=== PATIENT | male | born 1975 | race Caucasian/White ===

== ENCOUNTER 2018-08-30 18:09 | Inpatient (IN) | payer MEDICARE ==
[~2018-08-30] VITALS: Ht 182.9 cm; Wt 94.3 kg
[2018-08-30 19:13] VITALS: BP 109/61
[2018-08-30] MEDS ORDERED: NICOTINE TRANSD1 TDM TD (19:29)
[2018-08-30] MEDS ORDERED: ZOVIRAX PO (19:29)
[2018-08-30] MEDS ORDERED: IBU600 MG PO (19:30)
[2018-08-30] MEDS ORDERED: MS CONTIN30 MG PO (19:31)
[2018-08-30] MEDS ORDERED: TYLENOL EXTRA500 M2 PO (19:32)
[2018-08-30] MEDS ORDERED: HYDROXYZINE HCL25 M1 PO (19:33)
[2018-08-30] MEDS ORDERED: CYMBALTA30 M1 PO (19:33)
[2018-08-30] MEDS ORDERED: SEROQUEL 2525 MG/TAB PO (19:33)
[2018-08-30] MEDS ORDERED: GOOD NEIGH1200 MG/15 PO (19:34)
[2018-08-30] MEDS ORDERED: DULCOLAX STOOL100 M1 PO (19:34)
[2018-08-30] MEDS ORDERED: MIRALAX17 GM PO (19:35)
[2018-08-30] MEDS ORDERED: SENNA-S LAXATI1 EACH PO (19:35)
[2018-08-30] MEDS ORDERED: ZOFRAN4 M2 PO (19:37)
[2018-08-30] MEDS ORDERED: CEFAZOLIN 1 GM VIAL IV (19:37)
[2018-08-31 06:25] VITALS: BP 106/62
[2018-08-31 06:57] LABS: EOS # 0.2 (0.04-0.40); EOS % 2.3 % (0.0-4.0); LYMPH# 1.2 (1.50-4.00); MEAN CELL VOLUME 91 fl (78-100); MEAN CORPUSCULAR HEMOGLOBIN 27 pg (27-31); MEAN CORPUSCULAR HGB CONC 30 g/dL (33-37); MEAN PLATELET VOLUME 8.7 fl (7.4-10.4); MONO # 0.4 (0.20-0.80); PLATELET COUNT 416 K/mm3 (130-400); RED BLOOD COUNT 2.59 M/mm3 (4.20-5.60); RED CELL DISTRIBUTION WIDTH 15.2 % (11.5-14.5); WHITE BLOOD COUNT 6.9 K/mm3 (4.8-10.8)
[2018-08-31 06:59] LABS: HEMATOCRIT 23.5 % (42.0-52.0)
[2018-08-31 08:04] LABS: ALBUMIN 1.9 g/dL (3.5-5.0)
[2018-08-31 08:05] LABS: POTASSIUM 4.1 mmol/L (3.5-5.1)
[2018-08-31 08:06] LABS: CALCIUM 7.3 mg/dL (8.3-10.5)
[2018-08-31 08:07] LABS: TOTAL PROTEIN 5.2 g/dL (6.4-8.3)
[2018-08-31 08:09] LABS: TOTAL BILIRUBIN 0.3 mg/dL (0.2-1.2)
[2018-08-31 19:02] VITALS: BP 109/61
[2018-09-01 06:02] VITALS: BP 102/62
[2018-09-01 18:44] VITALS: BP 100/59
[2018-09-02 06:27] VITALS: BP 94/49
[2018-09-02 08:41] VITALS: BP 99/57
[2018-09-02 09:35] LABS: EOS # 0.3 (0.04-0.40); EOS % 4.9 % (0.0-4.0); HEMATOCRIT 27.1 % (42.0-52.0); HEMOGLOBIN 8.2 g/dL (13.5-18.0); MEAN CELL VOLUME 92 fl (78-100); MEAN CORPUSCULAR HEMOGLOBIN 28 pg (27-31); MEAN CORPUSCULAR HGB CONC 30 g/dL (33-37); MEAN PLATELET VOLUME 8.6 fl (7.4-10.4); MONO # 0.4 (0.20-0.80); NEU # 4.4 (1.40-6.50); PLATELET COUNT 364 K/mm3 (130-400); RED BLOOD COUNT 2.95 M/mm3 (4.20-5.60); RED CELL DISTRIBUTION WIDTH 15.5 % (11.5-14.5); WHITE BLOOD COUNT 6.1 K/mm3 (4.8-10.8)
[2018-09-02 09:43] LABS: ALBUMIN 2.3 g/dL (3.5-5.0); POTASSIUM 4.6 mmol/L (3.5-5.1)
[2018-09-02 09:45] LABS: CALCIUM 8.6 mg/dL (8.3-10.5)
[2018-09-02 09:48] LABS: TOTAL BILIRUBIN 0.3 mg/dL (0.2-1.2)
[2018-09-02 10:37] LABS: ERYTHROCYTE SEDIMENTATION RATE 42 mm/hr (0-15)
[2018-09-02 14:32] LABS: URINE APPEARANCE CLEAR; URINE BILIRUBIN NEGATIVE (NEGATIVE); URINE BLOOD NEGATIVE (NEGATIVE); URINE COLOR YELLOW; URINE GLUCOSE NEGATIVE (NEGATIVE); URINE KETONE NEGATIVE (NEGATIVE); URINE LEUKOCYTE ESTERASE NEGATIVE (NEGATIVE); URINE NITRATE NEGATIVE (NEGATIVE); URINE PROTEIN(semi-quant) NEGATIVE (NEGATIVE); URINE UROBILINOGEN NORMAL (NORMAL); URINE WBC 0-1 /hpf (0-3)
[2018-09-02 18:16] VITALS: BP 113/69
[2018-09-03 06:20] VITALS: BP 101/51
[2018-09-03 18:33] VITALS: BP 102/61
[2018-09-04 06:37] VITALS: BP 103/67
[2018-09-04 08:45] LABS: EOS % 0.2 % (0.0-4.0); HEMATOCRIT 29.5 % (42.0-52.0); HEMOGLOBIN 9.1 g/dL (13.5-18.0); LYMPH# 1.8 (1.50-4.00); MEAN CELL VOLUME 91 fl (78-100); MEAN CORPUSCULAR HEMOGLOBIN 28 pg (27-31); MEAN CORPUSCULAR HGB CONC 31 g/dL (33-37); MONO # 0.6 (0.20-0.80); NEU # 9.1 (1.40-6.50); PLATELET COUNT 398 K/mm3 (130-400); RED BLOOD COUNT 3.23 M/mm3 (4.20-5.60); RED CELL DISTRIBUTION WIDTH 16.1 % (11.5-14.5); WHITE BLOOD COUNT 11.5 K/mm3 (4.8-10.8)
[2018-09-04 08:55] LABS: ALBUMIN 2.7 g/dL (3.5-5.0); POTASSIUM 4.6 mmol/L (3.5-5.1)
[2018-09-04 08:56] LABS: CALCIUM 8.8 mg/dL (8.3-10.5)
[2018-09-04 08:57] LABS: TOTAL PROTEIN 6.7 g/dL (6.4-8.3)
[2018-09-04 08:59] LABS: TOTAL BILIRUBIN 0.5 mg/dL (0.2-1.2)
[2018-09-04 19:02] VITALS: BP 118/67
[2018-09-05 06:36] VITALS: BP 100/64
[2018-09-05 09:07] LABS: HEMATOCRIT 31.2 % (42.0-52.0); HEMOGLOBIN 9.5 g/dL (13.5-18.0); LYMPH# 1.9 (1.50-4.00); MEAN CELL VOLUME 92 fl (78-100); MEAN CORPUSCULAR HEMOGLOBIN 28 pg (27-31); MEAN CORPUSCULAR HGB CONC 30 g/dL (33-37); MEAN PLATELET VOLUME 9.2 fl (7.4-10.4); MONO # 0.8 (0.20-0.80); PLATELET COUNT 401 K/mm3 (130-400); RED BLOOD COUNT 3.39 M/mm3 (4.20-5.60); RED CELL DISTRIBUTION WIDTH 16.7 % (11.5-14.5); WHITE BLOOD COUNT 11.8 K/mm3 (4.8-10.8)
[2018-09-05 18:32] VITALS: BP 114/70
[2018-09-06 06:21] VITALS: BP 108/68
[2018-09-06 18:26] VITALS: BP 99/61
[2018-09-07 06:24] VITALS: BP 108/63
[2018-09-07 08:03] LABS: EOS # 0.2 (0.04-0.40); EOS % 3.2 % (0.0-4.0); HEMATOCRIT 31.7 % (42.0-52.0); HEMOGLOBIN 9.7 g/dL (13.5-18.0); LYMPH# 1.6 (1.50-4.00); MEAN CELL VOLUME 92 fl (78-100); MEAN CORPUSCULAR HEMOGLOBIN 28 pg (27-31); MEAN CORPUSCULAR HGB CONC 31 g/dL (33-37); MEAN PLATELET VOLUME 9.1 fl (7.4-10.4); MONO # 0.8 (0.20-0.80); NEU # 4.7 (1.40-6.50); PLATELET COUNT 319 K/mm3 (130-400); RED BLOOD COUNT 3.45 M/mm3 (4.20-5.60); RED CELL DISTRIBUTION WIDTH 17.5 % (11.5-14.5); WHITE BLOOD COUNT 7.5 K/mm3 (4.8-10.8)
[2018-09-07 08:33] LABS: CALCIUM 8.8 mg/dL (8.3-10.5); POTASSIUM 4.6 mmol/L (3.5-5.1)
[2018-09-07 19:02] VITALS: BP 116/67
[2018-09-08 06:26] VITALS: BP 111/62
[2018-09-08 18:37] VITALS: BP 102/62
[2018-09-09 06:22] VITALS: BP 105/56
[2018-09-09 18:48] VITALS: BP 102/61
[2018-09-10 06:27] VITALS: BP 100/61
[2018-09-10 10:53] LABS: EOS # 0.4 (0.04-0.40); EOS % 4.2 % (0.0-4.0); HEMOGLOBIN 11.2 g/dL (13.5-18.0); LYMPH# 2.1 (1.50-4.00); MEAN CELL VOLUME 94 fl (78-100); MEAN CORPUSCULAR HEMOGLOBIN 28 pg (27-31); MEAN CORPUSCULAR HGB CONC 30 g/dL (33-37); MEAN PLATELET VOLUME 9.6 fl (7.4-10.4); NEU # 4.9 (1.40-6.50); PLATELET COUNT 242 K/mm3 (130-400); RED BLOOD COUNT 3.95 M/mm3 (4.20-5.60); RED CELL DISTRIBUTION WIDTH 18.4 % (11.5-14.5); WHITE BLOOD COUNT 8.5 K/mm3 (4.8-10.8)
[2018-09-10 11:06] LABS: ALBUMIN 3.3 g/dL (3.5-5.0)
[2018-09-10 11:07] LABS: POTASSIUM 4.8 mmol/L (3.5-5.1)
[2018-09-10 11:08] LABS: CALCIUM 9.3 mg/dL (8.3-10.5)
[2018-09-10 11:09] LABS: TOTAL PROTEIN 7.5 g/dL (6.4-8.3)
[2018-09-10 11:11] LABS: TOTAL BILIRUBIN 0.5 mg/dL (0.2-1.2)
[2018-09-10 18:31] VITALS: BP 99/57
[2018-09-11 06:19] VITALS: BP 106/61
[2018-09-11 18:41] VITALS: BP 83/44
[2018-09-12 06:10] VITALS: BP 90/49
[2018-09-12 18:39] VITALS: BP 124/62
[2018-09-13 06:18] VITALS: BP 99/55
[2018-09-13 08:05] LABS: HEMATOCRIT 34.4 % (42.0-52.0); HEMOGLOBIN 10.3 g/dL (13.5-18.0); MEAN CELL VOLUME 94 fl (78-100); MEAN CORPUSCULAR HEMOGLOBIN 28 pg (27-31); MEAN CORPUSCULAR HGB CONC 30 g/dL (33-37); MEAN PLATELET VOLUME 9.6 fl (7.4-10.4); PLATELET COUNT 245 K/mm3 (130-400); RED BLOOD COUNT 3.67 M/mm3 (4.20-5.60); RED CELL DISTRIBUTION WIDTH 17.4 % (11.5-14.5); WHITE BLOOD COUNT 5.6 K/mm3 (4.8-10.8)
[2018-09-13 08:12] LABS: POTASSIUM 4.9 mmol/L (3.5-5.1)
[2018-09-13 08:13] LABS: CALCIUM 9.2 mg/dL (8.3-10.5)
[2018-09-13 08:14] LABS: TOTAL PROTEIN 6.8 g/dL (6.4-8.3)
[2018-09-13 08:16] LABS: TOTAL BILIRUBIN 0.4 mg/dL (0.2-1.2)
[2018-09-13 08:52] LABS: LYMPHOCYTE 31 % (20-51); MONOCYTE 16 % (3-10); NEUTROPHILS 49 % (42-75)
[2018-09-13 08:53] LABS: MICROCYTOSIS 1+; OVALOCYTES 1+
[2018-09-13 18:25] VITALS: BP 103/62
[2018-09-14 06:18] VITALS: BP 106/58
[2018-09-14 18:38] VITALS: BP 104/61
[2018-09-15 06:27] VITALS: BP 97/60
[2018-09-15 18:42] VITALS: BP 116/59
[2018-09-16 06:03] VITALS: BP 102/59; BP 141/77
[2018-09-16 19:06] VITALS: BP 100/57
[2018-09-17 06:08] VITALS: BP 110/65
[2018-09-17 18:00] VITALS: BP 104/58
[2018-09-18 05:58] LABS: EOS # 0.2 (0.04-0.40); EOS % 2.8 % (0.0-4.0); HEMATOCRIT 33.5 % (42.0-52.0); HEMOGLOBIN 10.1 g/dL (13.5-18.0); LYMPH# 1.5 (1.50-4.00); MEAN CELL VOLUME 93 fl (78-100); MEAN CORPUSCULAR HEMOGLOBIN 28 pg (27-31); MEAN CORPUSCULAR HGB CONC 30 g/dL (33-37); MEAN PLATELET VOLUME 10.2 fl (7.4-10.4); MONO # 0.8 (0.20-0.80); NEU # 5.2 (1.40-6.50); PLATELET COUNT 189 K/mm3 (130-400); RED BLOOD COUNT 3.59 M/mm3 (4.20-5.60); RED CELL DISTRIBUTION WIDTH 16.1 % (11.5-14.5); WHITE BLOOD COUNT 7.8 K/mm3 (4.8-10.8)
[2018-09-18 06:15] VITALS: BP 101/59
[2018-09-18 06:24] LABS: POTASSIUM 4.4 mmol/L (3.5-5.1)
[2018-09-18 06:25] LABS: CALCIUM 8.9 mg/dL (8.3-10.5)
[2018-09-18 19:14] VITALS: BP 105/53
[2018-09-19 06:24] VITALS: BP 105/67
[2018-09-19 18:00] VITALS: BP 102/62
[2018-09-20 06:22] VITALS: BP 111/64
[2018-09-20 18:25] VITALS: BP 106/65
[2018-09-21 06:16] VITALS: BP 90/60
[2018-09-21 18:56] VITALS: BP 95/58
[2018-09-22 06:20] VITALS: BP 100/63
[2018-09-22 18:23] VITALS: BP 100/62
[2018-09-23 06:21] VITALS: BP 106/65
[2018-09-23 18:33] VITALS: BP 110/68
[2018-09-24 06:23] VITALS: BP 103/66
[2018-09-24 18:16] VITALS: BP 111/67
[2018-09-25 06:24] VITALS: BP 111/63
[2018-09-25 06:26] LABS: HEMATOCRIT 36.1 % (42.0-52.0); HEMOGLOBIN 11.1 g/dL (13.5-18.0); MEAN CELL VOLUME 91 fl (78-100); MEAN CORPUSCULAR HEMOGLOBIN 28 pg (27-31); MEAN CORPUSCULAR HGB CONC 31 g/dL (33-37); MEAN PLATELET VOLUME 10.1 fl (7.4-10.4); PLATELET COUNT 192 K/mm3 (130-400); RED BLOOD COUNT 3.95 M/mm3 (4.20-5.60)
[2018-09-25 06:27] LABS: ALBUMIN 3.2 g/dL (3.5-5.0); POTASSIUM 4.8 mmol/L (3.5-5.1)
[2018-09-25 06:29] LABS: CALCIUM 9.2 mg/dL (8.3-10.5)
[2018-09-25 06:30] LABS: TOTAL PROTEIN 7.2 g/dL (6.4-8.3)
[2018-09-25 06:32] LABS: TOTAL BILIRUBIN 0.4 mg/dL (0.2-1.2)
[2018-09-25 06:43] LABS: LYMPHOCYTE 23 % (20-51); MONOCYTE 12 % (3-10); NEUTROPHILS 60 % (42-75)
[2018-09-25 18:20] VITALS: BP 102/64
[2018-09-26 06:20] VITALS: BP 95/63
[2018-09-26 18:26] VITALS: BP 95/61
[2018-09-27 05:59] LABS: HEMATOCRIT 36.4 % (42.0-52.0); HEMOGLOBIN 11.3 g/dL (13.5-18.0); MEAN CELL VOLUME 91 fl (78-100); MEAN CORPUSCULAR HEMOGLOBIN 28 pg (27-31); MEAN CORPUSCULAR HGB CONC 31 g/dL (33-37); MEAN PLATELET VOLUME 9.6 fl (7.4-10.4); PLATELET COUNT 168 K/mm3 (130-400); RED CELL DISTRIBUTION WIDTH 14.7 % (11.5-14.5); WHITE BLOOD COUNT 5.8 K/mm3 (4.8-10.8)
[2018-09-27 06:17] VITALS: BP 113/73
[2018-09-27 06:26] LABS: LYMPHOCYTE 25 % (20-51); MONOCYTE 16 % (3-10); NEUTROPHILS 54 % (42-75)
[2018-09-27 07:37] LABS: ERYTHROCYTE SEDIMENTATION RATE 13 mm/hr (0-15)
[2018-09-27 18:33] VITALS: BP 104/64
[2018-09-28 06:21] VITALS: BP 109/63
[2018-09-28 18:47] VITALS: BP 100/62
[2018-09-29 06:23] VITALS: BP 124/64
[2018-09-29 17:11] VITALS: BP 108/65
[2018-09-30 06:21] VITALS: BP 95/57
[2018-09-30 18:30] VITALS: BP 108/67
[2018-10-01 06:12] VITALS: BP 106/59
[2018-10-01 18:41] VITALS: BP 110/67
[2018-10-02 06:22] VITALS: BP 108/65
[2018-10-02 18:12] VITALS: BP 108/79
[2018-10-03 06:00] LABS: EOS # 0.3 (0.04-0.40); EOS % 4.9 % (0.0-4.0); HEMATOCRIT 38.1 % (42.0-52.0); HEMOGLOBIN 11.8 g/dL (13.5-18.0); MEAN CELL VOLUME 91 fl (78-100); MEAN CORPUSCULAR HEMOGLOBIN 28 pg (27-31); MEAN CORPUSCULAR HGB CONC 31 g/dL (33-37); MEAN PLATELET VOLUME 10.5 fl (7.4-10.4); MONO # 0.7 (0.20-0.80); NEU # 3.2 (1.40-6.50); PLATELET COUNT 171 K/mm3 (130-400); RED BLOOD COUNT 4.19 M/mm3 (4.20-5.60); RED CELL DISTRIBUTION WIDTH 14.9 % (11.5-14.5); WHITE BLOOD COUNT 6.3 K/mm3 (4.8-10.8)
[2018-10-03 06:11] VITALS: BP 99/57
[2018-10-03 06:12] LABS: ALBUMIN 3.3 g/dL (3.5-5.0); POTASSIUM 4.4 mmol/L (3.5-5.1)
[2018-10-03 06:13] LABS: CALCIUM 9.2 mg/dL (8.3-10.5)
[2018-10-03 06:15] LABS: TOTAL PROTEIN 7.3 g/dL (6.4-8.3)
[2018-10-03 06:16] LABS: TOTAL BILIRUBIN 0.5 mg/dL (0.2-1.2)
[2018-10-03 18:32] VITALS: BP 114/68
[2018-10-04 06:16] VITALS: BP 95/54
[2018-10-04 18:43] VITALS: BP 111/71
[2018-10-05 06:21] VITALS: BP 105/61
[2018-10-05 18:37] VITALS: BP 107/63
[2018-10-06 06:20] VITALS: BP 117/74
[2018-10-06 19:00] VITALS: BP 114/71
[2018-10-07 06:17] VITALS: BP 119/78
[2018-10-07 18:41] VITALS: BP 116/70
[2018-10-08 06:19] VITALS: BP 108/66
[2018-10-08 19:10] VITALS: BP 132/76
[2018-10-09 06:15] VITALS: BP 103/57
[2018-10-09 19:12] VITALS: BP 121/76
[2018-10-10 06:20] VITALS: BP 107/64
[2018-10-10 18:29] VITALS: BP 125/77
[2018-10-11 06:27] VITALS: BP 111/73
[2018-10-11 18:37] VITALS: BP 123/76
[2018-10-12 06:27] VITALS: BP 120/70
[2018-10-12 18:33] VITALS: BP 131/82
[2018-10-13 06:12] VITALS: BP 119/78
[2018-10-13 18:50] VITALS: BP 122/78
[2018-10-14 06:45] VITALS: BP 109/69
[2018-10-14 18:00] VITALS: BP 127/76
[2018-10-15 06:22] VITALS: BP 130/80
[2018-10-15 18:43] VITALS: BP 121/77
[2018-10-16 06:05] VITALS: BP 103/67
[2018-10-16] MEDS ORDERED: CEPHALEXIN500 M1 PO (15:05)
[2018-10-16] MEDS ORDERED: NICOTINE TRANSD1 TDM TD (15:06)
[2018-10-16] MEDS ORDERED: MS CONTIN30 MG PO (15:07)
[2018-10-16] MEDS ORDERED: SEROQUEL 2525 MG/TAB PO (15:07)
[2018-10-16] MEDS ORDERED: HYDROXYZINE HCL25 M1 PO (15:08)
[2018-10-16] MEDS ORDERED: BUSPIRONE5 MG PO (15:09)
[2018-10-16] MEDS ORDERED: HEALTHYLAX17 GM/Dose PO (15:10)
[2018-10-16] MEDS ORDERED: SENNA-TIME S 501 TAB PO (15:10)
[2018-10-16] MEDS ORDERED: DULCOLAX STOOL100 M1 PO (15:10)
[2018-10-16] MEDS ORDERED: ACETAMINOPHEN-O1 TAB PO (15:12)
[2018-10-16 17:11] VITALS: BP 114/76
[2018-10-17 06:03] VITALS: BP 109/66
== END 2018-10-17 16:12 | disposition home health service (06) | DRG 949 ==
LOC: MED/SURG 18:09
PROVIDERS: Family Medicine; Nurse Practitioner Primary Care; Physician Assistant; ADMIT Nurse Practitioner Family
DX: T84.51XD Infection and inflammatory reaction due to internal right hip prosthesis, subsequent encounter (principal); J86.9 Pyothorax without fistula; L03.113 Cellulitis of right upper limb; F19.10 Other psychoactive substance abuse, uncomplicated; F17.210 Nicotine dependence, cigarettes, uncomplicated; F32.9 Major depressive disorder, single episode, unspecified; F41.9 Anxiety disorder, unspecified; G89.29 Other chronic pain; B19.20 Unspecified viral hepatitis C without hepatic coma; B02.9 Zoster without complications; L27.0 Generalized skin eruption due to drugs and medicaments taken internally; T36.1X5A Adverse effect of cephalosporins and other beta-lactam antibiotics, initial encounter; Y92.239 Unspecified place in hospital as the place of occurrence of the external cause; Z79.891 Long term (current) use of opiate analgesic
CPT/HCPCS: A4216; A6209; J0690; J1650; J2916; J2920; J3490; Q0177

== ENCOUNTER → 2018-10-23 | Outpatient (CLI) | payer SELFPAY ==
[2018-10-17 06:03] VITALS: BP 109/66
[~2018-10-23] MED LIST: ACETAMINOPHEN-O1 TAB PO; BUSPIRONE5 MG PO; CEFAZOLIN 1 GM VIAL IV; CEPHALEXIN500 M1 PO; CYMBALTA30 M1 PO; DULCOLAX STOOL100 M1 PO; GOOD NEIGH1200 MG/15 PO; HEALTHYLAX17 GM/Dose PO; HYDROXYZINE HCL25 M1 PO; IBU600 MG PO; MIRALAX17 GM PO; MS CONTIN30 MG PO; NICOTINE TRANSD1 TDM TD; SENNA-S LAXATI1 EACH PO; SENNA-TIME S 501 TAB PO; SEROQUEL 2525 MG/TAB PO; TYLENOL EXTRA500 M2 PO; ZOFRAN4 M2 PO; ZOVIRAX PO
[2018-10-23 14:43] LABS: EOS # 0.3 (0.04-0.40); EOS % 3.7 % (0.0-4.0); HEMATOCRIT 43.1 % (42.0-52.0); HEMOGLOBIN 13.6 g/dL (13.5-18.0); LYMPH# 1.9 (1.50-4.00); MEAN CELL VOLUME 88 fl (78-100); MEAN CORPUSCULAR HEMOGLOBIN 28 pg (27-31); MEAN CORPUSCULAR HGB CONC 32 g/dL (33-37); MEAN PLATELET VOLUME 9.4 fl (7.4-10.4); MONO # 0.8 (0.20-0.80); NEU # 5.8 (1.40-6.50); PLATELET COUNT 219 K/mm3 (130-400); RED CELL DISTRIBUTION WIDTH 13.6 % (11.5-14.5); WHITE BLOOD COUNT 8.9 K/mm3 (4.8-10.8)
[2018-10-23 14:51] LABS: ALBUMIN 3.9 g/dL (3.5-5.0)
[2018-10-23 14:52] LABS: POTASSIUM 4.5 mmol/L (3.5-5.1)
[2018-10-23 14:53] LABS: CALCIUM 9.5 mg/dL (8.3-10.5)
[2018-10-23 14:54] LABS: TOTAL PROTEIN 8.1 g/dL (6.4-8.3)
[2018-10-23 14:56] LABS: TOTAL BILIRUBIN 0.3 mg/dL (0.2-1.2)
[2018-10-23 16:05] LABS: ERYTHROCYTE SEDIMENTATION RATE 17 mm/hr (0-15)
== END ==
LOC: LAB 14:02
PROVIDERS: Internal Medicine
DX: T84.59XA Infection and inflammatory reaction due to other internal joint prosthesis, initial encounter (principal); M87.9 Osteonecrosis, unspecified; B19.20 Unspecified viral hepatitis C without hepatic coma

== ENCOUNTER → 2018-11-01 | Outpatient (CLI) | payer SELFPAY ==
[2018-10-17 06:03] VITALS: BP 109/66
[2018-11-01 14:22] LABS: EOS # 0.3 (0.04-0.40); EOS % 3.8 % (0.0-4.0); HEMATOCRIT 42.7 % (42.0-52.0); HEMOGLOBIN 13.8 g/dL (13.5-18.0); LYMPH# 1.2 (1.50-4.00); MEAN CELL VOLUME 86 fl (78-100); MEAN CORPUSCULAR HEMOGLOBIN 28 pg (27-31); MEAN CORPUSCULAR HGB CONC 32 g/dL (33-37); MEAN PLATELET VOLUME 9.3 fl (7.4-10.4); MONO # 0.6 (0.20-0.80); PLATELET COUNT 216 K/mm3 (130-400); RED BLOOD COUNT 4.98 M/mm3 (4.20-5.60); RED CELL DISTRIBUTION WIDTH 13.8 % (11.5-14.5); WHITE BLOOD COUNT 7.2 K/mm3 (4.8-10.8)
[2018-11-01 14:24] LABS: ALBUMIN 3.7 g/dL (3.5-5.0)
[2018-11-01 14:25] LABS: POTASSIUM 4.5 mmol/L (3.5-5.1)
[2018-11-01 14:26] LABS: CALCIUM 9.7 mg/dL (8.3-10.5)
[2018-11-01 14:29] LABS: TOTAL BILIRUBIN 0.5 mg/dL (0.2-1.2)
[2018-11-01 15:23] LABS: ERYTHROCYTE SEDIMENTATION RATE 16 mm/hr (0-15)
== END ==
LOC: LAB 13:36
PROVIDERS: Internal Medicine
DX: T84.59XA Infection and inflammatory reaction due to other internal joint prosthesis, initial encounter (principal); F19.10 Other psychoactive substance abuse, uncomplicated; M87.9 Osteonecrosis, unspecified

== ENCOUNTER → 2018-12-06 | Outpatient (CLI) | payer OTHER | LOC: LAB 16:05 | DX: Z01.89 Encounter for other specified special examinations (principal) ==

== ENCOUNTER → 2018-12-20 | Outpatient (CLI) | payer SELFPAY ==
[2018-12-20 14:44] LABS: EOS # 0.2 (0.04-0.40); EOS % 2.4 % (0.0-4.0); HEMATOCRIT 46.8 % (42.0-52.0); LYMPH# 2.4 (1.50-4.00); MEAN CELL VOLUME 82 fl (78-100); MEAN CORPUSCULAR HEMOGLOBIN 26 pg (27-31); MEAN CORPUSCULAR HGB CONC 32 g/dL (33-37); MEAN PLATELET VOLUME 9.2 fl (7.4-10.4); MONO # 0.8 (0.20-0.80); NEU # 3.8 (1.40-6.50); PLATELET COUNT 195 K/mm3 (130-400); RED BLOOD COUNT 5.71 M/mm3 (4.20-5.60); RED CELL DISTRIBUTION WIDTH 15.1 % (11.5-14.5); WHITE BLOOD COUNT 7.2 K/mm3 (4.8-10.8)
[2018-12-20 14:52] LABS: ALBUMIN 4.1 g/dL (3.5-5.0); SODIUM 141 mmol/L (136-145)
[2018-12-20 14:54] LABS: CALCIUM 9.7 mg/dL (8.3-10.5)
[2018-12-20 14:55] LABS: GLUCOSE 100 mg/dL (75-110); TOTAL PROTEIN 8.4 g/dL (6.4-8.3)
[2018-12-20 14:56] LABS: CARBON DIOXIDE 20 mmol/L (22-29)
[2018-12-20 14:57] LABS: TOTAL BILIRUBIN 0.6 mg/dL (0.2-1.2)
[2018-12-20 15:00] LABS: AST-SGOT 41 U/L (5-34)
[2018-12-20 15:01] LABS: ALT/SGPT 50 U/L (0-55)
[2018-12-20 16:13] LABS: ERYTHROCYTE SEDIMENTATION RATE 10 mm/hr (0-15)
== END ==
LOC: LAB 14:14
PROVIDERS: Internal Medicine
DX: T84.59XA Infection and inflammatory reaction due to other internal joint prosthesis, initial encounter (principal); M87.9 Osteonecrosis, unspecified; F19.10 Other psychoactive substance abuse, uncomplicated

== ENCOUNTER → 2019-01-17 | Outpatient (CLI) | payer OTHER ==
[2019-01-17 10:22] LABS: HEMATOCRIT 46.1 % (42.0-52.0); HEMOGLOBIN 15.1 g/dL (13.5-18.0); MEAN CELL VOLUME 83 fl (78-100); MEAN CORPUSCULAR HEMOGLOBIN 27 pg (27-31); MEAN CORPUSCULAR HGB CONC 33 g/dL (33-37); MEAN PLATELET VOLUME 10.5 fl (7.4-10.4); PLATELET COUNT 165 K/mm3 (130-400); RED BLOOD COUNT 5.59 M/mm3 (4.20-5.60); RED CELL DISTRIBUTION WIDTH 16.4 % (11.5-14.5); WHITE BLOOD COUNT 6.1 K/mm3 (4.8-10.8)
[2019-01-17 10:39] LABS: ALBUMIN 4.1 g/dL (3.5-5.0)
[2019-01-17 10:40] LABS: POTASSIUM 4.1 mmol/L (3.5-5.1)
[2019-01-17 10:41] LABS: CALCIUM 9.6 mg/dL (8.3-10.5)
[2019-01-17 10:42] LABS: TOTAL PROTEIN 7.9 g/dL (6.4-8.3)
[2019-01-17 11:12] LABS: LYMPHOCYTE 33 % (20-51); MONOCYTE 8 % (3-10); NEUTROPHILS 54 % (42-75)
[2019-01-17 11:34] LABS: ERYTHROCYTE SEDIMENTATION RATE 3 mm/hr (0-15)
== END ==
LOC: LAB 09:53
PROVIDERS: Internal Medicine
DX: T84.51XA Infection and inflammatory reaction due to internal right hip prosthesis, initial encounter (principal); M87.9 Osteonecrosis, unspecified

== ENCOUNTER → 2019-02-14 | Outpatient (CLI) | payer OTHER ==
[2019-02-14 08:59] LABS: BASO # 0.1 (0.02-0.10); EOS # 0.5 (0.04-0.40); HEMATOCRIT 48.9 % (42.0-52.0); HEMOGLOBIN 15.7 g/dL (13.5-18.0); LYMPH# 2.2 (1.50-4.00); MEAN CELL VOLUME 85 fl (78-100); MEAN CORPUSCULAR HEMOGLOBIN 27 pg (27-31); MEAN CORPUSCULAR HGB CONC 32 g/dL (33-37); MEAN PLATELET VOLUME 10.7 fl (7.4-10.4); MONO # 0.9 (0.20-0.80); NEU # 4.2 (1.40-6.50); PLATELET COUNT 188 K/mm3 (130-400); RED BLOOD COUNT 5.73 M/mm3 (4.20-5.60); RED CELL DISTRIBUTION WIDTH 17.2 % (11.5-14.5); WHITE BLOOD COUNT 7.9 K/mm3 (4.8-10.8)
[2019-02-14 09:06] LABS: ALBUMIN 4.3 g/dL (3.5-5.0); POTASSIUM 4.8 mmol/L (3.5-5.1)
[2019-02-14 09:08] LABS: TOTAL PROTEIN 8.2 g/dL (6.4-8.3)
[2019-02-14 09:10] LABS: TOTAL BILIRUBIN 0.7 mg/dL (0.2-1.2)
[2019-02-14 10:47] LABS: ERYTHROCYTE SEDIMENTATION RATE 3 mm/hr (0-15)
== END ==
LOC: RAD 07:58
PROVIDERS: Internal Medicine
DX: J32.0 Chronic maxillary sinusitis (principal); T84.59XA Infection and inflammatory reaction due to other internal joint prosthesis, initial encounter; M87.9 Osteonecrosis, unspecified

== ENCOUNTER → 2019-02-21 | Outpatient (CLI) | payer MEDICAID | END | disposition still patient (30) | LOC: EDSTATUS 09:30 → PT 09:30 | DX: T84.59XA Infection and inflammatory reaction due to other internal joint prosthesis, initial encounter (principal); M87.9 Osteonecrosis, unspecified ==

== ENCOUNTER → 2019-03-28 | Outpatient (CLI) | payer MEDICAID ==
[2019-03-28 09:51] LABS: EOS # 0.3 (0.04-0.40); EOS % 4.7 % (0.0-4.0); HEMATOCRIT 42.9 % (42.0-52.0); HEMOGLOBIN 14.2 g/dL (13.5-18.0); LYMPH# 1.4 (1.50-4.00); MEAN CELL VOLUME 85 fl (78-100); MEAN CORPUSCULAR HEMOGLOBIN 28 pg (27-31); MEAN CORPUSCULAR HGB CONC 33 g/dL (33-37); MEAN PLATELET VOLUME 10.8 fl (7.4-10.4); MONO # 0.7 (0.20-0.80); PLATELET COUNT 147 K/mm3 (130-400); RED BLOOD COUNT 5.04 M/mm3 (4.20-5.60); RED CELL DISTRIBUTION WIDTH 15.5 % (11.5-14.5); WHITE BLOOD COUNT 6.4 K/mm3 (4.8-10.8)
[2019-03-28 09:53] LABS: ALBUMIN 3.8 g/dL (3.5-5.0); POTASSIUM 4.3 mmol/L (3.5-5.1)
[2019-03-28 09:54] LABS: CALCIUM 8.8 mg/dL (8.3-10.5)
[2019-03-28 09:55] LABS: TOTAL PROTEIN 7.4 g/dL (6.4-8.3)
[2019-03-28 09:57] LABS: TOTAL BILIRUBIN 0.5 mg/dL (0.2-1.2)
[2019-03-28 10:55] LABS: ERYTHROCYTE SEDIMENTATION RATE 3 mm/hr (0-15)
== END ==
LOC: LAB 09:17
PROVIDERS: Internal Medicine
DX: T84.59XA Infection and inflammatory reaction due to other internal joint prosthesis, initial encounter (principal); M87.9 Osteonecrosis, unspecified

== ENCOUNTER 2019-05-06 15:52 | Inpatient (IN) | payer MEDICARE, MEDICAID ==
[~2019-05-06] VITALS: Ht 182.9 cm; Wt 104.5 kg
[2019-05-08] MEDS ORDERED: CELEXA 20MG20 MG/TA1 PO (17:06)
[2019-05-08 17:07] VITALS: BP 158/84
[2019-05-08] MEDS ORDERED: MIRTAZAPINE30 MG PO (17:07)
[2019-05-08] MEDS ORDERED: OXYCODONE HCL10 M1 PO (17:08)
[2019-05-08] MEDS ORDERED: NICOTINE21 MG/24 H TD (17:09)
[2019-05-08 18:16] VITALS: BP 158/84
[2019-05-09 05:48] VITALS: BP 123/75
[2019-05-09 18:03] VITALS: BP 115/75
[2019-05-10 06:15] VITALS: BP 116/74
[2019-05-10 07:14] LABS: EOS # 0.1 (0.04-0.40); EOS % 1.2 % (0.0-4.0); HEMATOCRIT 31.5 % (42.0-52.0); HEMOGLOBIN 9.8 g/dL (13.5-18.0); MEAN CELL VOLUME 90 fl (78-100); MEAN CORPUSCULAR HEMOGLOBIN 28 pg (27-31); MEAN CORPUSCULAR HGB CONC 31 g/dL (33-37); MEAN PLATELET VOLUME 8.8 fl (7.4-10.4); NEU # 6.3 (1.40-6.50); RED CELL DISTRIBUTION WIDTH 14.5 % (11.5-14.5); WHITE BLOOD COUNT 9.5 K/mm3 (4.8-10.8)
[2019-05-10 07:22] LABS: POTASSIUM 4.4 mmol/L (3.5-5.1)
[2019-05-10 07:23] LABS: CALCIUM 8.9 mg/dL (8.3-10.5)
[2019-05-10 08:18] LABS: PLATELET COUNT 581 K/mm3 (130-400)
[2019-05-10 08:19] LABS: ERYTHROCYTE SEDIMENTATION RATE 85 mm/hr (0-15)
[2019-05-10 17:22] VITALS: BP 103/67
[2019-05-11 06:09] VITALS: BP 112/71
[2019-05-11 17:13] VITALS: BP 112/74
[2019-05-12 06:02] VITALS: BP 112/69
[2019-05-12 16:29] VITALS: BP 104/62
[2019-05-13 05:58] VITALS: BP 114/69
[2019-05-13 17:40] VITALS: BP 110/72
[2019-05-14 06:27] VITALS: BP 115/65
[2019-05-14 07:24] LABS: ALBUMIN 3.2 g/dL (3.5-5.0); POTASSIUM 4.6 mmol/L (3.5-5.1)
[2019-05-14 07:25] LABS: CALCIUM 8.9 mg/dL (8.3-10.5)
[2019-05-14 07:27] LABS: EOS # 0.2 (0.04-0.40); EOS % 3.2 % (0.0-4.0); HEMATOCRIT 32.2 % (42.0-52.0); HEMOGLOBIN 9.7 g/dL (13.5-18.0); LYMPH# 1.6 (1.50-4.00); MEAN CELL VOLUME 89 fl (78-100); MEAN CORPUSCULAR HEMOGLOBIN 27 pg (27-31); MEAN CORPUSCULAR HGB CONC 30 g/dL (33-37); MEAN PLATELET VOLUME 8.8 fl (7.4-10.4); MONO # 0.7 (0.20-0.80); NEU # 3.1 (1.40-6.50); RED CELL DISTRIBUTION WIDTH 14.2 % (11.5-14.5); TOTAL PROTEIN 6.9 g/dL (6.4-8.3); WHITE BLOOD COUNT 5.6 K/mm3 (4.8-10.8)
[2019-05-14 07:29] LABS: TOTAL BILIRUBIN 0.2 mg/dL (0.2-1.2)
[2019-05-14 07:42] LABS: PLATELET COUNT 508 K/mm3 (130-400)
[2019-05-14 08:24] LABS: ERYTHROCYTE SEDIMENTATION RATE 76 mm/hr (0-15)
[2019-05-14 17:12] VITALS: BP 111/69
[2019-05-15 05:32] VITALS: BP 117/75
[2019-05-15 16:28] VITALS: BP 111/70
[2019-05-16 06:00] VITALS: BP 115/69
[2019-05-16 17:33] VITALS: BP 109/49
[2019-05-17 05:20] VITALS: BP 115/72
[2019-05-17 17:06] VITALS: BP 121/79
[2019-05-18 06:00] VITALS: BP 125/79
[2019-05-18 16:04] VITALS: BP 106/67
[2019-05-18 23:09] VITALS: BP 133/77
[2019-05-19 05:47] VITALS: BP 111/72
[2019-05-19 17:49] VITALS: BP 120/70
[2019-05-20 05:55] VITALS: BP 116/73
[2019-05-20 10:19] LABS: EOS # 0.2 (0.04-0.40); HEMATOCRIT 35.7 % (42.0-52.0); HEMOGLOBIN 10.8 g/dL (13.5-18.0); LYMPH# 1.4 (1.50-4.00); MEAN CELL VOLUME 88 fl (78-100); MEAN CORPUSCULAR HEMOGLOBIN 27 pg (27-31); MEAN CORPUSCULAR HGB CONC 30 g/dL (33-37); MEAN PLATELET VOLUME 9.2 fl (7.4-10.4); MONO # 0.6 (0.20-0.80); NEU # 4.2 (1.40-6.50); PLATELET COUNT 348 K/mm3 (130-400); RED BLOOD COUNT 4.07 M/mm3 (4.20-5.60); RED CELL DISTRIBUTION WIDTH 14.2 % (11.5-14.5); WHITE BLOOD COUNT 6.4 K/mm3 (4.8-10.8)
[2019-05-20 10:20] LABS: ALBUMIN 3.5 g/dL (3.5-5.0); POTASSIUM 4.3 mmol/L (3.5-5.1)
[2019-05-20 10:22] LABS: TOTAL PROTEIN 7.8 g/dL (6.4-8.3)
[2019-05-20 10:24] LABS: TOTAL BILIRUBIN 0.2 mg/dL (0.2-1.2)
[2019-05-20 15:58] VITALS: BP 113/71
[2019-05-21 05:49] LABS: HEMATOCRIT 33.2 % (42.0-52.0); HEMOGLOBIN 10.1 g/dL (13.5-18.0); MEAN CELL VOLUME 88 fl (78-100); MEAN CORPUSCULAR HEMOGLOBIN 27 pg (27-31); MEAN CORPUSCULAR HGB CONC 30 g/dL (33-37); MEAN PLATELET VOLUME 9.2 fl (7.4-10.4); PLATELET COUNT 312 K/mm3 (130-400); RED BLOOD COUNT 3.77 M/mm3 (4.20-5.60); RED CELL DISTRIBUTION WIDTH 14.1 % (11.5-14.5); WHITE BLOOD COUNT 4.8 K/mm3 (4.8-10.8)
[2019-05-21 06:04] LABS: ALBUMIN 3.2 g/dL (3.5-5.0); POTASSIUM 4.7 mmol/L (3.5-5.1)
[2019-05-21 06:05] LABS: CALCIUM 8.9 mg/dL (8.3-10.5)
[2019-05-21 06:08] LABS: TOTAL BILIRUBIN 0.2 mg/dL (0.2-1.2)
[2019-05-21 06:23] VITALS: BP 103/62
[2019-05-21 06:32] LABS: LYMPHOCYTE 28 % (20-51); MONOCYTE 13 % (3-10); NEUTROPHILS 51 % (42-75)
[2019-05-21 06:33] LABS: OVALOCYTES 1+
[2019-05-21 18:04] VITALS: BP 114/81
[2019-05-22 05:59] VITALS: BP 118/73
[2019-05-22 17:43] VITALS: BP 102/68
[2019-05-23 05:56] VITALS: BP 114/71
[2019-05-23 18:07] VITALS: BP 113/73
[2019-05-24 06:06] VITALS: BP 117/70
[2019-05-24 17:05] VITALS: BP 96/60
[2019-05-25 05:31] VITALS: BP 134/77
[2019-05-25 16:58] VITALS: BP 104/69
[2019-05-26 06:41] VITALS: BP 103/64
[2019-05-26 17:24] VITALS: BP 102/62
[2019-05-27 05:22] VITALS: BP 114/64
[2019-05-27 18:00] VITALS: BP 109/68
[2019-05-28 05:23] VITALS: BP 112/71
[2019-05-28 05:44] LABS: HEMOGLOBIN 10.6 g/dL (13.5-18.0); MEAN CELL VOLUME 87 fl (78-100); MEAN CORPUSCULAR HEMOGLOBIN 26 pg (27-31); MEAN CORPUSCULAR HGB CONC 30 g/dL (33-37); MEAN PLATELET VOLUME 9.1 fl (7.4-10.4); PLATELET COUNT 235 K/mm3 (130-400); RED BLOOD COUNT 4.03 M/mm3 (4.20-5.60); RED CELL DISTRIBUTION WIDTH 14.2 % (11.5-14.5); WHITE BLOOD COUNT 5.3 K/mm3 (4.8-10.8)
[2019-05-28 05:55] LABS: ALBUMIN 3.3 g/dL (3.5-5.0); POTASSIUM 4.4 mmol/L (3.5-5.1)
[2019-05-28 05:56] LABS: CALCIUM 8.6 mg/dL (8.3-10.5)
[2019-05-28 05:58] LABS: TOTAL PROTEIN 6.9 g/dL (6.4-8.3)
[2019-05-28 06:00] LABS: TOTAL BILIRUBIN 0.3 mg/dL (0.2-1.2)
[2019-05-28 06:31] LABS: LYMPHOCYTE 23 % (20-51); MONOCYTE 15 % (3-10); NEUTROPHILS 50 % (42-75)
[2019-05-28 18:00] VITALS: BP 102/61
[2019-05-29 05:54] VITALS: BP 117/69
[2019-05-29 16:38] VITALS: BP 103/64
[2019-05-30 05:32] VITALS: BP 125/72
[2019-05-30 17:11] VITALS: BP 111/70
[2019-05-31 05:58] VITALS: BP 109/68
[2019-05-31 16:02] VITALS: BP 106/65
[2019-06-01 06:04] VITALS: BP 111/69
[2019-06-01 18:11] VITALS: BP 102/62
[2019-06-02 06:03] VITALS: BP 113/69
[2019-06-02 16:38] VITALS: BP 93/58
[2019-06-03 06:16] VITALS: BP 102/66
[2019-06-03 17:19] VITALS: BP 95/60
[2019-06-04 05:57] LABS: EOS # 0.3 (0.04-0.40); HEMOGLOBIN 10.7 g/dL (13.5-18.0); LYMPH# 1.7 (1.50-4.00); MEAN CELL VOLUME 86 fl (78-100); MEAN CORPUSCULAR HEMOGLOBIN 26 pg (27-31); MEAN CORPUSCULAR HGB CONC 31 g/dL (33-37); MEAN PLATELET VOLUME 9.4 fl (7.4-10.4); MONO # 0.6 (0.20-0.80); NEU # 2.7 (1.40-6.50); PLATELET COUNT 222 K/mm3 (130-400); RED BLOOD COUNT 4.06 M/mm3 (4.20-5.60); RED CELL DISTRIBUTION WIDTH 14.4 % (11.5-14.5); WHITE BLOOD COUNT 5.3 K/mm3 (4.8-10.8)
[2019-06-04 05:58] LABS: EOS % 6.2 % (0.0-4.0)
[2019-06-04 06:00] LABS: ALBUMIN 3.4 g/dL (3.5-5.0); POTASSIUM 4.9 mmol/L (3.5-5.1)
[2019-06-04 06:01] LABS: CALCIUM 8.8 mg/dL (8.3-10.5)
[2019-06-04 06:03] LABS: TOTAL PROTEIN 6.9 g/dL (6.4-8.3)
[2019-06-04 06:04] LABS: TOTAL BILIRUBIN 0.3 mg/dL (0.2-1.2)
[2019-06-04 06:16] VITALS: BP 101/63
[2019-06-04 17:47] VITALS: BP 130/64
[2019-06-05 06:00] VITALS: BP 103/65
[2019-06-05 18:13] VITALS: BP 109/65
[2019-06-06 05:48] VITALS: BP 105/66
[2019-06-06 17:08] VITALS: BP 97/59
[2019-06-07 05:48] VITALS: BP 101/65
[2019-06-07 16:09] VITALS: BP 100/64
[2019-06-08 05:49] VITALS: BP 105/53
[2019-06-08 17:50] VITALS: BP 107/65
[2019-06-09 06:07] VITALS: BP 101/64
[2019-06-09 16:04] VITALS: BP 92/66
[2019-06-09 18:30] VITALS: BP 99/61
[2019-06-10 05:37] VITALS: BP 104/66
[2019-06-10 16:11] VITALS: BP 102/65
[2019-06-11 05:49] VITALS: BP 101/63
[2019-06-11 06:02] LABS: ALBUMIN 3.6 g/dL (3.5-5.0); POTASSIUM 4.8 mmol/L (3.5-5.1)
[2019-06-11 06:03] LABS: CALCIUM 8.8 mg/dL (8.3-10.5)
[2019-06-11 06:04] LABS: TOTAL PROTEIN 7.1 g/dL (6.4-8.3)
[2019-06-11 06:06] LABS: TOTAL BILIRUBIN 0.3 mg/dL (0.2-1.2)
[2019-06-11 06:52] LABS: HEMATOCRIT 34.7 % (42.0-52.0); HEMOGLOBIN 10.6 g/dL (13.5-18.0); MEAN CELL VOLUME 85 fl (78-100); MEAN CORPUSCULAR HEMOGLOBIN 26 pg (27-31); MEAN CORPUSCULAR HGB CONC 31 g/dL (33-37); MEAN PLATELET VOLUME 9.9 fl (7.4-10.4); PLATELET COUNT 217 K/mm3 (130-400); RED CELL DISTRIBUTION WIDTH 14.4 % (11.5-14.5); WHITE BLOOD COUNT 5.2 K/mm3 (4.8-10.8)
[2019-06-11 07:19] LABS: LYMPHOCYTE 32 % (20-51); MONOCYTE 10 % (3-10); NEUTROPHILS 50 % (42-75)
[2019-06-11 17:40] VITALS: BP 111/68
[2019-06-12 05:27] VITALS: BP 110/67
[2019-06-12 16:02] VITALS: BP 99/66
[2019-06-13 06:11] VITALS: BP 112/71
[2019-06-13 18:35] VITALS: BP 100/65
[2019-06-14 06:05] VITALS: BP 107/72
[2019-06-14 17:13] VITALS: BP 97/60
[2019-06-15 06:15] VITALS: BP 109/67
[2019-06-15 18:29] VITALS: BP 109/70
[2019-06-16 05:56] VITALS: BP 109/68
[2019-06-16 18:14] VITALS: BP 110/71
[2019-06-17 05:26] VITALS: BP 126/74
[2019-06-17 17:32] VITALS: BP 101/65
[2019-06-18 05:28] LABS: ALBUMIN 3.6 g/dL (3.5-5.0)
[2019-06-18 05:29] LABS: EOS # 0.4 (0.04-0.40); HEMATOCRIT 36.7 % (42.0-52.0); HEMOGLOBIN 11.3 g/dL (13.5-18.0); LYMPH# 1.6 (1.50-4.00); MEAN CELL VOLUME 85 fl (78-100); MEAN CORPUSCULAR HEMOGLOBIN 26 pg (27-31); MEAN CORPUSCULAR HGB CONC 31 g/dL (33-37); MEAN PLATELET VOLUME 9.6 fl (7.4-10.4); MONO # 0.6 (0.20-0.80); NEU # 2.6 (1.40-6.50); PLATELET COUNT 203 K/mm3 (130-400); POTASSIUM 4.8 mmol/L (3.5-5.1); RED BLOOD COUNT 4.32 M/mm3 (4.20-5.60); RED CELL DISTRIBUTION WIDTH 14.5 % (11.5-14.5); WHITE BLOOD COUNT 5.2 K/mm3 (4.8-10.8)
[2019-06-18 05:30] LABS: CALCIUM 8.7 mg/dL (8.3-10.5)
[2019-06-18 05:33] LABS: TOTAL BILIRUBIN 0.2 mg/dL (0.2-1.2)
[2019-06-18 05:44] LABS: EOS % 7.8 % (0.0-4.0)
[2019-06-18 06:00] VITALS: BP 112/65
[2019-06-18 06:27] LABS: ERYTHROCYTE SEDIMENTATION RATE 13 mm/hr (0-15)
[2019-06-18 07:23] LABS: MAGNESIUM 2.01 mg/dL (1.60-2.60)
[2019-06-18 16:17] VITALS: BP 106/68
[2019-06-19 05:41] VITALS: BP 105/67
[2019-06-19 15:59] VITALS: BP 104/69
[2019-06-20 05:35] VITALS: BP 114/66
[2019-06-20] MEDS ORDERED: CYCLOBENZAPRINE10 M1 PO (07:25)
[2019-06-20] MEDS ORDERED: FERROUS SU325 MG/TAB PO (07:26)
[2019-06-20] MEDS ORDERED: NICOTINE14 MG/24 H TD (07:26)
[2019-06-20] MEDS ORDERED: PROBIOTICA100 MILLIO PO (07:32)
[2019-06-20] MEDS ORDERED: CEPHALEXIN500 M2 PO (07:33)
== END 2019-06-20 11:30 | disposition home health service (06) | DRG 949 ==
LOC: MED/SURG 15:52
PROVIDERS: Family Medicine; Nurse Practitioner; Physician Assistant; ADMIT Internal Medicine
DX: T84.51XD Infection and inflammatory reaction due to internal right hip prosthesis, subsequent encounter (principal); J86.9 Pyothorax without fistula; Y83.9 Surgical procedure, unspecified as the cause of abnormal reaction of the patient, or of later complication, without mention of misadventure at the time of the procedure; F41.9 Anxiety disorder, unspecified; G47.00 Insomnia, unspecified; F11.10 Opioid abuse, uncomplicated; G89.29 Other chronic pain; Z86.19 Personal history of other infectious and parasitic diseases
CPT/HCPCS: J0696; J1650; J2270; Q0177

== ENCOUNTER → 2019-06-26 | Outpatient (CLI) | payer MEDICARE, MEDICAID ==
[2019-06-20 05:35] VITALS: BP 114/66
[~2019-06-26] MED LIST changes: +CELEXA 20MG20 MG/TA1 PO; +CEPHALEXIN500 M2 PO; +CYCLOBENZAPRINE10 M1 PO; +FERROUS SU325 MG/TAB PO; +MIRTAZAPINE30 MG PO; +NICOTINE14 MG/24 H TD; +NICOTINE21 MG/24 H TD; +OXYCODONE HCL10 M1 PO; +PROBIOTICA100 MILLIO PO
[2019-06-26 18:59] LABS: EOS # 0.4 (0.04-0.40); EOS % 4.8 % (0.0-4.0); HEMATOCRIT 36.7 % (42.0-52.0); HEMOGLOBIN 11.4 g/dL (13.5-18.0); LYMPH# 1.8 (1.50-4.00); MEAN CELL VOLUME 83 fl (78-100); MEAN CORPUSCULAR HEMOGLOBIN 26 pg (27-31); MEAN CORPUSCULAR HGB CONC 31 g/dL (33-37); MEAN PLATELET VOLUME 9.3 fl (7.4-10.4); MONO # 0.7 (0.20-0.80); NEU # 4.8 (1.40-6.50); PLATELET COUNT 255 K/mm3 (130-400); RED CELL DISTRIBUTION WIDTH 14.8 % (11.5-14.5); WHITE BLOOD COUNT 7.8 K/mm3 (4.8-10.8)
[2019-06-26 19:52] LABS: ERYTHROCYTE SEDIMENTATION RATE 13 mm/hr (0-15)
[2019-06-26 20:07] LABS: ALBUMIN 3.9 g/dL (3.5-5.0); CALCIUM 8.7 mg/dL (8.3-10.5); POTASSIUM 4.2 mmol/L (3.5-5.1); TOTAL BILIRUBIN 0.3 mg/dL (0.2-1.2); TOTAL PROTEIN 7.4 g/dL (6.4-8.3)
== END ==
LOC: LAB 06-25 13:36
PROVIDERS: Internal Medicine
DX: T81.49XA Infection following a procedure, other surgical site, initial encounter (principal); F19.10 Other psychoactive substance abuse, uncomplicated; A49.1 Streptococcal infection, unspecified site; B18.2 Chronic viral hepatitis C

== ENCOUNTER → 2019-07-16 | Outpatient (CLI) | payer MEDICAID ==
[2019-06-20 05:35] VITALS: BP 114/66
[2019-07-16 12:24] LABS: EOS # 0.1 (0.04-0.40); EOS % 1.4 % (0.0-4.0); HEMATOCRIT 43.4 % (42.0-52.0); HEMOGLOBIN 13.4 g/dL (13.5-18.0); LYMPH# 1.5 (1.50-4.00); MEAN CELL VOLUME 82 fl (78-100); MEAN CORPUSCULAR HEMOGLOBIN 25 pg (27-31); MEAN CORPUSCULAR HGB CONC 31 g/dL (33-37); MEAN PLATELET VOLUME 9.4 fl (7.4-10.4); MONO # 0.5 (0.20-0.80); NEU # 4.2 (1.40-6.50); PLATELET COUNT 280 K/mm3 (130-400); RED BLOOD COUNT 5.31 M/mm3 (4.20-5.60); RED CELL DISTRIBUTION WIDTH 15.4 % (11.5-14.5); WHITE BLOOD COUNT 6.4 K/mm3 (4.8-10.8)
[2019-07-16 12:33] LABS: ALBUMIN 4.3 g/dL (3.5-5.0); POTASSIUM 3.7 mmol/L (3.5-5.1)
[2019-07-16 12:35] LABS: CALCIUM 9.6 mg/dL (8.3-10.5)
[2019-07-16 12:36] LABS: TOTAL PROTEIN 8.5 g/dL (6.4-8.3)
[2019-07-16 12:38] LABS: TOTAL BILIRUBIN 0.7 mg/dL (0.2-1.2)
[2019-07-16 13:30] LABS: ERYTHROCYTE SEDIMENTATION RATE 11 mm/hr (0-15)
== END ==
LOC: LAB 11:59
PROVIDERS: Internal Medicine
DX: T84.59XA Infection and inflammatory reaction due to other internal joint prosthesis, initial encounter (principal); M87.9 Osteonecrosis, unspecified

== ENCOUNTER → 2019-08-27 | Outpatient (CLI) | payer MEDICAID | LOC: AMSURD 14:34 | DX: Z01.818 Encounter for other preprocedural examination (principal); T84.59XA Infection and inflammatory reaction due to other internal joint prosthesis, initial encounter ==

== ENCOUNTER → 2019-08-28 | Outpatient (CLI) | payer MEDICAID ==
[2019-08-28 12:47] LABS: URINE APPEARANCE CLEAR; URINE BILIRUBIN NEGATIVE (NEGATIVE); URINE BLOOD NEGATIVE (NEGATIVE); URINE COLOR YELLOW; URINE GLUCOSE NEGATIVE (NEGATIVE); URINE KETONE NEGATIVE (NEGATIVE); URINE LEUKOCYTE ESTERASE NEGATIVE (NEGATIVE); URINE NITRATE NEGATIVE (NEGATIVE); URINE PROTEIN(semi-quant) 1+ mg/dL (NEGATIVE); URINE UROBILINOGEN NORMAL (NORMAL)
[2019-08-28 12:56] LABS: EOS # 0.4 (0.04-0.40); HEMATOCRIT 45.6 % (42.0-52.0); MEAN CELL VOLUME 81 fl (78-100); MEAN CORPUSCULAR HEMOGLOBIN 25 pg (27-31); MEAN CORPUSCULAR HGB CONC 31 g/dL (33-37); MEAN PLATELET VOLUME 10.5 fl (7.4-10.4); MONO # 0.4 (0.20-0.80); NEU # 3.7 (1.40-6.50); PLATELET COUNT 105 K/mm3 (130-400); RED BLOOD COUNT 5.62 M/mm3 (4.20-5.60); RED CELL DISTRIBUTION WIDTH 18.5 % (11.5-14.5); WHITE BLOOD COUNT 6.5 K/mm3 (4.8-10.8)
[2019-08-28 12:57] LABS: EOS % 6.1 % (0.0-4.0)
[2019-08-28 13:07] LABS: ALBUMIN 4.3 g/dL (3.5-5.0); POTASSIUM 4.9 mmol/L (3.5-5.1)
[2019-08-28 13:08] LABS: CALCIUM 9.1 mg/dL (8.3-10.5); PROTHROMBIN TIME 11.3 SECONDS (9.0-12.0)
[2019-08-28 13:10] LABS: TOTAL PROTEIN 8.9 g/dL (6.4-8.3)
[2019-08-28 13:11] LABS: TOTAL BILIRUBIN 0.3 mg/dL (0.2-1.2)
[2019-08-28 13:16] LABS: MAGNESIUM 1.92 mg/dL (1.60-2.60)
[2019-08-28 14:09] LABS: ERYTHROCYTE SEDIMENTATION RATE 1 mm/hr (0-15)
== END ==
LOC: LAB 12:26
PROVIDERS: Internal Medicine
DX: Z01.818 Encounter for other preprocedural examination (principal); T84.59XA Infection and inflammatory reaction due to other internal joint prosthesis, initial encounter; M87.9 Osteonecrosis, unspecified

== ENCOUNTER → 2019-11-19 | Outpatient (CLI) | payer MEDICAID ==
[2019-11-19 13:08] LABS: EOS # 0.2 (0.04-0.40); EOS % 3.8 % (0.0-4.0); HEMATOCRIT 47.9 % (42.0-52.0); HEMOGLOBIN 14.6 g/dL (13.5-18.0); LYMPH# 1.7 (1.50-4.00); MEAN CELL VOLUME 86 fl (78-100); MEAN CORPUSCULAR HEMOGLOBIN 26 pg (27-31); MEAN CORPUSCULAR HGB CONC 31 g/dL (33-37); MEAN PLATELET VOLUME 9.6 fl (7.4-10.4); MONO # 0.6 (0.20-0.80); NEU # 3.6 (1.40-6.50); PLATELET COUNT 213 K/mm3 (130-400); RED BLOOD COUNT 5.58 M/mm3 (4.20-5.60); RED CELL DISTRIBUTION WIDTH 19.5 % (11.5-14.5); WHITE BLOOD COUNT 6.1 K/mm3 (4.8-10.8)
[2019-11-19 13:21] LABS: ALBUMIN 4.3 g/dL (3.5-5.0)
[2019-11-19 13:22] LABS: POTASSIUM 4.4 mmol/L (3.5-5.1)
[2019-11-19 13:23] LABS: CALCIUM 9.5 mg/dL (8.3-10.5)
[2019-11-19 13:24] LABS: TOTAL PROTEIN 8.8 g/dL (6.4-8.3)
[2019-11-19 13:26] LABS: TOTAL BILIRUBIN 0.9 mg/dL (0.2-1.2)
[2019-11-19 14:37] LABS: ERYTHROCYTE SEDIMENTATION RATE 3 mm/hr (0-15)
== END ==
LOC: LAB 12:46
PROVIDERS: Internal Medicine
DX: T81.49XA Infection following a procedure, other surgical site, initial encounter (principal); T84.59XA Infection and inflammatory reaction due to other internal joint prosthesis, initial encounter; A49.1 Streptococcal infection, unspecified site; B19.20 Unspecified viral hepatitis C without hepatic coma; M87.9 Osteonecrosis, unspecified; Z72.0 Tobacco use

== ENCOUNTER → 2020-01-28 | Outpatient (CLI) | payer MEDICAID ==
[2020-01-28 11:07] LABS: EOS # 0.4 (0.04-0.40); EOS % 5.5 % (0.0-4.0); HEMATOCRIT 50.5 % (42.0-52.0); HEMOGLOBIN 16.2 g/dL (13.5-18.0); LYMPH# 2.4 (1.50-4.00); MEAN CELL VOLUME 83 fl (78-100); MEAN CORPUSCULAR HEMOGLOBIN 27 pg (27-31); MEAN CORPUSCULAR HGB CONC 32 g/dL (33-37); MEAN PLATELET VOLUME 10.4 fl (7.4-10.4); MONO # 0.7 (0.20-0.80); NEU # 4.2 (1.40-6.50); PLATELET COUNT 183 K/mm3 (130-400); RED CELL DISTRIBUTION WIDTH 17.6 % (11.5-14.5); WHITE BLOOD COUNT 7.8 K/mm3 (4.8-10.8)
[2020-01-28 11:21] LABS: ALBUMIN 4.2 g/dL (3.5-5.0); POTASSIUM 4.1 mmol/L (3.5-5.1)
[2020-01-28 11:22] LABS: CALCIUM 9.4 mg/dL (8.3-10.5)
[2020-01-28 11:23] LABS: TOTAL PROTEIN 8.8 g/dL (6.4-8.3)
[2020-01-28 11:25] LABS: TOTAL BILIRUBIN 0.5 mg/dL (0.2-1.2)
[2020-01-28 12:43] LABS: ERYTHROCYTE SEDIMENTATION RATE 2 mm/hr (0-15)
== END ==
LOC: LAB 10:52
PROVIDERS: Internal Medicine
DX: T84.50XD Infection and inflammatory reaction due to unspecified internal joint prosthesis, subsequent encounter (principal)

== ENCOUNTER → 2021-01-22 | Outpatient (CLI) | payer MEDICARE, MEDICAID ==
[2021-01-22 12:23] LABS: BASO # 0.04 K/mm3 (0.02-0.10); EOS # 0.27 K/mm3 (0.04-0.40); EOS % 4.4 % (0.0-4.0); LYMPH# 2.46 K/mm3 (1.50-4.00); MEAN CELL VOLUME 98 fl (78-100); MEAN CORPUSCULAR HEMOGLOBIN 31 pg (27-31); MEAN CORPUSCULAR HGB CONC 32 g/dL (33-37); MEAN PLATELET VOLUME 10.2 fl (7.4-10.4); MONO # 0.72 K/mm3 (0.20-0.80); NEU # 2.61 K/mm3 (1.40-6.50); PLATELET COUNT 95 K/mm3 (130-400); RED BLOOD COUNT 5.53 M/mm3 (4.20-5.60); RED CELL DISTRIBUTION WIDTH 14.4 % (11.5-14.5); WHITE BLOOD COUNT 6.1 K/mm3 (4.8-10.8)
[2021-01-22 12:30] LABS: POTASSIUM 5.3 mmol/L (3.5-5.1)
[2021-01-22 12:31] LABS: ALBUMIN 3.9 g/dL (3.5-5.0)
[2021-01-22 12:33] LABS: TOTAL PROTEIN 8.6 g/dL (6.4-8.3)
[2021-01-22 12:34] LABS: CALCIUM 12.8 mg/dL (8.3-10.5)
[2021-01-22 12:35] LABS: TOTAL BILIRUBIN 0.7 mg/dL (0.2-1.2)
[2021-01-22 13:32] LABS: ERYTHROCYTE SEDIMENTATION RATE 7 mm/hr (0-15)
== END ==
LOC: LAB 11:39
PROVIDERS: Internal Medicine
DX: Z12.5 Encounter for screening for malignant neoplasm of prostate (principal); B18.2 Chronic viral hepatitis C; E78.2 Mixed hyperlipidemia; K90.9 Intestinal malabsorption, unspecified; T84.50XD Infection and inflammatory reaction due to unspecified internal joint prosthesis, subsequent encounter

== ENCOUNTER 2021-04-28 15:59 | Observation (INO) | payer MEDICARE, MEDICAID ==
[~2021-04-28] VITALS: Ht 182.9 cm; Wt 104.9 kg
[2021-04-28 18:07] LABS: BASO # 0.02 K/mm3 (0.02-0.10); EOS # 0.04 K/mm3 (0.04-0.40); EOS % 0.4 % (0.0-4.0); HEMOGLOBIN 13.7 g/dL (13.5-18.0); LYMPH# 1.17 K/mm3 (1.50-4.00); MEAN CELL VOLUME 97 fl (78-100); MEAN CORPUSCULAR HEMOGLOBIN 33 pg (27-31); MEAN CORPUSCULAR HGB CONC 33 g/dL (33-37); MEAN PLATELET VOLUME 9.9 fl (7.4-10.4); MONO # 0.72 K/mm3 (0.20-0.80); NEU # 7.38 K/mm3 (1.40-6.50); PLATELET COUNT 117 K/mm3 (130-400); RED BLOOD COUNT 4.22 M/mm3 (4.20-5.60); RED CELL DISTRIBUTION WIDTH 14.2 % (11.5-14.5); WHITE BLOOD COUNT 9.4 K/mm3 (4.8-10.8)
[2021-04-28 18:19] LABS: ALBUMIN 3.8 g/dL (3.5-5.0); POTASSIUM 4.4 mmol/L (3.5-5.1)
[2021-04-28 18:20] LABS: CALCIUM 9.2 mg/dL (8.3-10.5)
[2021-04-28 18:22] LABS: TOTAL PROTEIN 7.8 g/dL (6.4-8.3)
[2021-04-28 18:23] LABS: TOTAL BILIRUBIN 1.6 mg/dL (0.2-1.2)
[2021-04-28] MEDS ORDERED: MS CONTIN 115 MG/TAB PO (19:04)
[2021-04-28] MEDS ORDERED: KLONOPIN 0.5MG0.5 MG PO (19:04)
[2021-04-28] MEDS ORDERED: SINGULAIR 110 MG/TAB PO (19:05)
[2021-04-28] MEDS ORDERED: NICOTINE21 MG/24 H TD (19:05)
[2021-04-28 20:40] LABS: ERYTHROCYTE SEDIMENTATION RATE 23 mm/hr (0-15)
[2021-04-29] VITALS (7 sets, daily range): BP systolic 101–120; BP diastolic 61–95
[2021-04-29 08:33] LABS: BASO # 0.02 K/mm3 (0.02-0.10); EOS # 0.14 K/mm3 (0.04-0.40); EOS % 2.4 % (0.0-4.0); HEMATOCRIT 38.9 % (42.0-52.0); LYMPH# 1.56 K/mm3 (1.50-4.00); MEAN CELL VOLUME 98 fl (78-100); MEAN CORPUSCULAR HEMOGLOBIN 33 pg (27-31); MEAN CORPUSCULAR HGB CONC 33 g/dL (33-37); MEAN PLATELET VOLUME 10.3 fl (7.4-10.4); MONO # 0.61 K/mm3 (0.20-0.80); NEU # 3.58 K/mm3 (1.40-6.50); PLATELET COUNT 105 K/mm3 (130-400); RED BLOOD COUNT 3.98 M/mm3 (4.20-5.60); RED CELL DISTRIBUTION WIDTH 14.3 % (11.5-14.5); WHITE BLOOD COUNT 5.9 K/mm3 (4.8-10.8)
[2021-04-29] MEDS ORDERED: CLEOCIN HCL300 MG PO (09:31)
== END 2021-04-29 11:18 | disposition home or self-care (01) ==
LOC: ED 15:59 → MED/SURG 23:09
PROVIDERS: Family Medicine; ADMIT Nurse Practitioner Family
DX: L03.115 Cellulitis of right lower limb (principal); L03.113 Cellulitis of right upper limb; B18.2 Chronic viral hepatitis C; F10.20 Alcohol dependence, uncomplicated; G89.29 Other chronic pain; F41.9 Anxiety disorder, unspecified; F32.A Depression, unspecified; F17.200 Nicotine dependence, unspecified, uncomplicated; R50.9 Fever, unspecified; Z79.891 Long term (current) use of opiate analgesic; Z79.899 Other long term (current) drug therapy; Z79.82 Long term (current) use of aspirin; F19.10 Other psychoactive substance abuse, uncomplicated
CPT/HCPCS: G0378; J3370; J7050

== ENCOUNTER → 2021-05-10 | Outpatient (CLI) | payer MEDICARE, MEDICAID ==
[~2021-05-10] MED LIST changes: +CLEOCIN HCL300 MG PO; +KLONOPIN 0.5MG0.5 MG PO; +MS CONTIN 115 MG/TAB PO; +SINGULAIR 110 MG/TAB PO
[2021-05-10 15:35] LABS: BASO # 0.04 K/mm3 (0.02-0.10); EOS # 0.11 K/mm3 (0.04-0.40); HEMATOCRIT 49.7 % (42.0-52.0); HEMOGLOBIN 15.9 g/dL (13.5-18.0); LYMPH# 1.36 K/mm3 (1.50-4.00); MEAN CELL VOLUME 101 fl (78-100); MEAN CORPUSCULAR HEMOGLOBIN 32 pg (27-31); MEAN CORPUSCULAR HGB CONC 32 g/dL (33-37); MEAN PLATELET VOLUME 9.9 fl (7.4-10.4); MONO # 0.46 K/mm3 (0.20-0.80); NEU # 3.52 K/mm3 (1.40-6.50); PLATELET COUNT 237 K/mm3 (130-400); RED BLOOD COUNT 4.91 M/mm3 (4.20-5.60); RED CELL DISTRIBUTION WIDTH 14.4 % (11.5-14.5); WHITE BLOOD COUNT 5.5 K/mm3 (4.8-10.8)
[2021-05-10 15:42] LABS: POTASSIUM 4.4 mmol/L (3.5-5.1)
[2021-05-10 15:43] LABS: CALCIUM 9.6 mg/dL (8.3-10.5)
[2021-05-10 15:44] LABS: TOTAL PROTEIN 8.8 g/dL (6.4-8.3)
[2021-05-10 15:46] LABS: TOTAL BILIRUBIN 0.8 mg/dL (0.2-1.2)
[2021-05-10 16:53] LABS: ERYTHROCYTE SEDIMENTATION RATE 31 mm/hr (0-15)
== END ==
LOC: LAB 15:01
PROVIDERS: Internal Medicine
DX: L03.115 Cellulitis of right lower limb (principal); F19.10 Other psychoactive substance abuse, uncomplicated; T84.50XD Infection and inflammatory reaction due to unspecified internal joint prosthesis, subsequent encounter; B18.2 Chronic viral hepatitis C; G89.29 Other chronic pain

== ENCOUNTER → 2021-07-09 | Outpatient (CLI) | payer MEDICARE, MEDICAID ==
[2021-07-09 11:40] LABS: BASO # 0.01 K/mm3 (0.02-0.10); EOS # 0.12 K/mm3 (0.04-0.40); EOS % 2.4 % (0.0-4.0); HEMATOCRIT 36.8 % (42.0-52.0); HEMOGLOBIN 12.3 g/dL (13.5-18.0); LYMPH# 0.98 K/mm3 (1.50-4.00); MEAN CELL VOLUME 105 fl (78-100); MEAN CORPUSCULAR HEMOGLOBIN 35 pg (27-31); MEAN CORPUSCULAR HGB CONC 33 g/dL (33-37); MEAN PLATELET VOLUME 11.7 fl (7.4-10.4); MONO # 0.58 K/mm3 (0.20-0.80); NEU # 3.32 K/mm3 (1.40-6.50); RED BLOOD COUNT 3.51 M/mm3 (4.20-5.60); RED CELL DISTRIBUTION WIDTH 20.9 % (11.5-14.5)
[2021-07-09 11:47] LABS: ALBUMIN 2.7 g/dL (3.5-5.0)
[2021-07-09 11:48] LABS: POTASSIUM 4.4 mmol/L (3.5-5.1)
[2021-07-09 11:49] LABS: CALCIUM 8.5 mg/dL (8.3-10.5)
[2021-07-09 11:50] LABS: TOTAL PROTEIN 6.9 g/dL (6.4-8.3)
[2021-07-09 11:52] LABS: TOTAL BILIRUBIN 4.6 mg/dL (0.2-1.2)
[2021-07-09 13:02] LABS: PLATELET COUNT 39 K/mm3 (130-400)
[2021-07-09 15:39] LABS: ERYTHROCYTE SEDIMENTATION RATE 0 mm/hr (0-15)
== END ==
LOC: LAB 11:05
PROVIDERS: Internal Medicine
DX: L03.115 Cellulitis of right lower limb (principal); T84.50XD Infection and inflammatory reaction due to unspecified internal joint prosthesis, subsequent encounter; F19.10 Other psychoactive substance abuse, uncomplicated; B18.2 Chronic viral hepatitis C; G89.29 Other chronic pain; J30.2 Other seasonal allergic rhinitis; F41.8 Other specified anxiety disorders

== ENCOUNTER → 2021-09-17 | Outpatient (CLI) | payer MEDICARE, MEDICAID ==
[2021-09-17 10:24] LABS: BASO # 0.04 K/mm3 (0.02-0.10); EOS # 0.22 K/mm3 (0.04-0.40); EOS % 4.7 % (0.0-4.0); HEMATOCRIT 44.9 % (42.0-52.0); HEMOGLOBIN 14.7 g/dL (13.5-18.0); LYMPH# 1.22 K/mm3 (1.50-4.00); MEAN CELL VOLUME 101 fl (78-100); MEAN CORPUSCULAR HEMOGLOBIN 33 pg (27-31); MEAN CORPUSCULAR HGB CONC 33 g/dL (33-37); MEAN PLATELET VOLUME 11.8 fl (7.4-10.4); MONO # 0.48 K/mm3 (0.20-0.80); NEU # 2.65 K/mm3 (1.40-6.50); RED BLOOD COUNT 4.44 M/mm3 (4.20-5.60); RED CELL DISTRIBUTION WIDTH 13.9 % (11.5-14.5); WHITE BLOOD COUNT 4.7 K/mm3 (4.8-10.8)
[2021-09-17 10:35] LABS: ALBUMIN 3.3 g/dL (3.5-5.0)
[2021-09-17 10:36] LABS: POTASSIUM 4.4 mmol/L (3.5-5.1)
[2021-09-17 10:37] LABS: CALCIUM 8.9 mg/dL (8.3-10.5)
[2021-09-17 10:38] LABS: PLATELET COUNT 90 K/mm3 (130-400); TOTAL PROTEIN 7.3 g/dL (6.4-8.3)
[2021-09-17 10:40] LABS: TOTAL BILIRUBIN 1.7 mg/dL (0.2-1.2)
== END ==
LOC: LAB 09:22
PROVIDERS: Internal Medicine
DX: T84.50XD Infection and inflammatory reaction due to unspecified internal joint prosthesis, subsequent encounter (principal); B18.2 Chronic viral hepatitis C; D69.6 Thrombocytopenia, unspecified; J69.0 Pneumonitis due to inhalation of food and vomit; L03.115 Cellulitis of right lower limb; F19.10 Other psychoactive substance abuse, uncomplicated; J30.2 Other seasonal allergic rhinitis; F41.8 Other specified anxiety disorders; M25.562 Pain in left knee; G89.29 Other chronic pain

== ENCOUNTER → 2022-03-11 | Outpatient (CLI) | payer MEDICARE, MEDICAID ==
[2022-03-11 11:27] LABS: BASO # 0.04 K/mm3 (0.02-0.10); EOS # 0.21 K/mm3 (0.04-0.40); EOS % 3.6 % (0.0-4.0); HEMATOCRIT 43.1 % (42.0-52.0); HEMOGLOBIN 14.4 g/dL (13.5-18.0); LYMPH# 0.96 K/mm3 (1.50-4.00); MEAN CELL VOLUME 99 fl (78-100); MEAN CORPUSCULAR HEMOGLOBIN 33 pg (27-31); MEAN CORPUSCULAR HGB CONC 33 g/dL (33-37); MONO # 0.53 K/mm3 (0.20-0.80); NEU # 4.09 K/mm3 (1.40-6.50); RED BLOOD COUNT 4.37 M/mm3 (4.20-5.60); RED CELL DISTRIBUTION WIDTH 18.6 % (11.5-14.5); WHITE BLOOD COUNT 5.9 K/mm3 (4.8-10.8)
[2022-03-11 11:34] LABS: POTASSIUM 4.6 mmol/L (3.5-5.1)
[2022-03-11 11:35] LABS: ALBUMIN 3.3 g/dL (3.5-5.0)
[2022-03-11 11:36] LABS: CALCIUM 8.7 mg/dL (8.3-10.5)
[2022-03-11 11:37] LABS: TOTAL PROTEIN 6.9 g/dL (6.4-8.3)
[2022-03-11 11:39] LABS: TOTAL BILIRUBIN 1.8 mg/dL (0.2-1.2)
[2022-03-11 13:06] LABS: ERYTHROCYTE SEDIMENTATION RATE 1 mm/hr (0-15)
== END ==
LOC: LAB 10:54
PROVIDERS: Internal Medicine
DX: Z12.5 Encounter for screening for malignant neoplasm of prostate (principal); T84.50XD Infection and inflammatory reaction due to unspecified internal joint prosthesis, subsequent encounter; B18.2 Chronic viral hepatitis C; E78.2 Mixed hyperlipidemia; K90.9 Intestinal malabsorption, unspecified; M25.562 Pain in left knee; G89.29 Other chronic pain; M79.671 Pain in right foot; Z79.891 Long term (current) use of opiate analgesic; M76.61 Achilles tendinitis, right leg

== ENCOUNTER → 2022-04-05 | Outpatient (CLI) | payer MEDICARE, MEDICAID | LOC: RAD 10:42 | DX: B18.2 Chronic viral hepatitis C (principal) ==

== ENCOUNTER → 2023-05-25 | Outpatient (CLI) | payer MEDICARE ==
[2023-05-25 10:04] LABS: BASO # 0.03 K/mm3 (0.02-0.10); EOS # 0.24 K/mm3 (0.04-0.40); EOS % 4.9 % (0.0-4.0); HEMATOCRIT 44.1 % (42.0-52.0); HEMOGLOBIN 14.6 g/dL (13.5-18.0); LYMPH# 0.85 K/mm3 (1.50-4.00); MEAN CELL VOLUME 100 fl (78-100); MEAN CORPUSCULAR HEMOGLOBIN 33 pg (27-31); MEAN CORPUSCULAR HGB CONC 33 g/dL (33-37); MEAN PLATELET VOLUME 10.6 fl (7.4-10.4); MONO # 0.36 K/mm3 (0.20-0.80); NEU # 3.37 K/mm3 (1.40-6.50); PLATELET COUNT 75 K/mm3 (130-400); RED BLOOD COUNT 4.42 M/mm3 (4.20-5.60); RED CELL DISTRIBUTION WIDTH 13.3 % (11.5-14.5); WHITE BLOOD COUNT 4.9 K/mm3 (4.8-10.8)
[2023-05-25 10:15] LABS: ALBUMIN 3.9 g/dL (3.5-5.0)
[2023-05-25 10:16] LABS: CALCIUM 9.8 mg/dL (8.3-10.5)
[2023-05-25 10:18] LABS: TOTAL PROTEIN 7.1 g/dL (6.4-8.3)
[2023-05-25 10:20] LABS: TOTAL BILIRUBIN 1.8 mg/dL (0.2-1.2)
[2023-05-26 00:58] LABS: FOLATE (FOLIC ACID) 10.4 ng/mL (2.0-20.0)
== END ==
LOC: LAB 09:43
PROVIDERS: Internal Medicine
DX: Z12.5 Encounter for screening for malignant neoplasm of prostate (principal); T84.50XD Infection and inflammatory reaction due to unspecified internal joint prosthesis, subsequent encounter; K90.9 Intestinal malabsorption, unspecified; E78.2 Mixed hyperlipidemia; B18.2 Chronic viral hepatitis C

== ENCOUNTER → 2023-11-27 | Outpatient (CLI) | payer MEDICARE ==
[2023-11-27 11:51] LABS: BASO # 0.03 K/mm3 (0.02-0.10); EOS # 0.23 K/mm3 (0.04-0.40); EOS % 4.5 % (0.0-4.0); HEMATOCRIT 48.2 % (42.0-52.0); HEMOGLOBIN 15.7 g/dL (13.5-18.0); LYMPH# 1.19 K/mm3 (1.50-4.00); MEAN CELL VOLUME 103 fl (78-100); MEAN CORPUSCULAR HEMOGLOBIN 34 pg (27-31); MEAN CORPUSCULAR HGB CONC 33 g/dL (33-37); MEAN PLATELET VOLUME 10.1 fl (7.4-10.4); MONO # 0.45 K/mm3 (0.20-0.80); NEU # 3.22 K/mm3 (1.40-6.50); RED BLOOD COUNT 4.69 M/mm3 (4.20-5.60); RED CELL DISTRIBUTION WIDTH 13.5 % (11.5-14.5); WHITE BLOOD COUNT 5.1 K/mm3 (4.8-10.8)
[2023-11-27 12:00] LABS: ALBUMIN 3.8 g/dL (3.5-5.0)
[2023-11-27 12:01] LABS: CALCIUM 9.7 mg/dL (8.3-10.5)
[2023-11-27 12:02] LABS: TOTAL PROTEIN 7.5 g/dL (6.4-8.3)
[2023-11-27 12:04] LABS: TOTAL BILIRUBIN 1.3 mg/dL (0.2-1.2)
[2023-11-27 12:09] LABS: MAGNESIUM 1.64 mg/dL (1.60-2.60)
[2023-11-27 12:26] LABS: PLATELET COUNT 77 K/mm3 (130-400)
[2023-11-27 23:04] LABS: FOLATE (FOLIC ACID) 10.8 ng/mL (2.0-20.0)
== END ==
LOC: LAB 11:21
PROVIDERS: Internal Medicine
DX: K90.9 Intestinal malabsorption, unspecified (principal); E78.2 Mixed hyperlipidemia; F41.8 Other specified anxiety disorders